=== PATIENT | male | born 1970 | race Caucasian/White ===

== ENCOUNTER 2017-03-20 13:39 | Emergency (ER) | payer OTHER ==
[2017-03-20] MEDS ORDERED: OXYCODONE/APAP 5/325 TAB PO ONE (14:09)
[2017-03-20] MEDS ORDERED: DIAZEPAM 5 MG TAB PO ONE (14:09)
[2017-03-20] MEDS ORDERED: KETOROLAC 30 MG/1 ML SDV IM ONE (14:09)
[2017-03-20] MEDS ORDERED: LIDOCAINE 5% 1 EA PATCH TD ONE (14:13)
--- NOTE | 2017-03-20 14:13 | EDPHY ---
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 He thinks he really over did it yesterday moving a lot of heavy equipment and late last night started feeling tightness and muscle spasm in his mid posterior back which today's severe. It is much worse if he tries to stand up or turn or take a deep breath. He is best hunched over. It is not associated with weakness or numbness in extremities or incontinence. Pain is in the mid to upper low back and does not radiate. Symptoms currently severe. REVIEW OF SYSTEMS: Eye: no change in vision ENT: no sore throat Cardiac: no chest pain or syncope Pulmonary: Not coughing or short of breath Abdomen: No abdominal pain Musculoskeletal: HPI Skin: no rash Neuro: HPI Constitutional: no fever : no urinary symptoms A comprehensive 10 point review of systems is otherwise negative aside from elements mentioned in the history of present illness. PAST MEDICAL HISTORY: Spine surgery and cervical and lumbar region previously Social history: Works as a turret lathe machinist, no drugs General Appearance: Alert and conversant, cooperative. Moderately uncomfortable and hunched over bent at the waist Eyes: No scleral icterus. ENT, Mouth: Normal mucous membranes. Respiratory: Normal respiratory effort, breath sounds equal, lungs are clear to auscultation. Cardiovascular: Regular rate and rhythm. Gastrointestinal: Abdomen is soft and non tender. No pulsatile mass. Neurological: Alert, face symmetric, normal motor and sensory in extremities. Patellar and ankle reflexes are 2+ symmetric, toes downgoing, no clonus. Skin: Warm and dry, no rashes. Musculoskeletal: Does not have midline tenderness in the back to palpation. Slight paraspinal muscle tenderness but not severe. Psychiatric: Not agitated. Emergency Department course/MDM: Patient presents with likely muscle spasm and nontraumatic back pain which I think is not likely to be vascular or aneurysm or pulmonary embolism or ACS or fracture or acute spinal cord compromise. He took a single oral Tylenol pill and a single 200 mg ibuprofen prior to arriving. Toradol 30 mg IM, Percocet 1 orally, Valium 5 mg orally. Does not have neurologic deficit, follow-up in 24 hr with work comp clinic. 1509: Able to stand up with some difficulty but feels a lot better and wants to be discharged which I think is reasonable. Smoking Status: Never smoked Constitutional: Initial Vital Signs Temperature (C) 36.6 C 03/20/17 13:42 Heart Rate 71 03/20/17 13:42 Respiratory Rate 16 03/20/17 13:42 Blood Pressure 134/105 H 03/20/17 13:42 O2 Sat (%) 99 03/20/17 13:42 O2 Delivery Mode Room Air Allergies/Adverse Reactions: No Known Allergies Allergy (Unverified 03/20/17 13:42) Home Medications: Medication Instructions Recorded NK [No Known Home Meds] 03/20/17 Medical Decision Making - Data Points Medications Given: Discontinued Medications Diazepam (Valium) 5 mg PO EDNOW ONE Stop: 03/20/17 14:10 Last Admin: 03/20/17 14:21 Dose: 5 mg Ketorolac Tromethamine (Toradol) 30 mg IM EDNOW ONE Stop: 03/20/17 14:10 Last Admin: 03/20/17 14:21 Dose: 30 mg Lidocaine (Lidoderm 5%) 1 ea TD EDNOW ONE Stop: 03/20/17 14:14 Last Admin: 03/20/17 14:21 Dose: 1 ea Oxycodone/Acetaminophen (Percocet 5/325) 1 tab PO EDNOW ONE Stop: 03/20/17 14:10 Last Admin: 03/20/17 14:21 Dose: 1 tab Departure - Departure Disposition: Home, Routine, Self-Care Clinical Impression: Back pain Qualifiers: Back pain location: thoracic back pain Chronicity: acute Back pain laterality: bilateral Qualified Code(s): M54.6 - Pain in thoracic spine Condition: Good Instructions: Back Pain (ED) Additional Instructions: Oral ibuprofen 600 mg every 8 hr for the next 48 hr. Follow-up with work comp clinic tomorrow. No work until approved by worker's compensation Clinic provider. Referrals: [facility] ,. [Primary Care Provider] - As per Instructions
[2017-03-20 15:21] VITALS: BP 154/90; PULSE 77; RESP 18; TEMP 97.7; O2SAT 96
[2017-03-20] MEDS ORDERED: PATCH REMOVAL 1 EA PATCH TD SCH (21:00)
== END 2017-03-20 15:20 | disposition home or self-care (01) ==
DX: M54.6 Pain in thoracic spine (principal)
CPT/HCPCS: J1885